=== PATIENT | female | born 1980 | race Caucasian/White ===

== ENCOUNTER 2019-09-23 04:14 | Emergency (ER) | payer BC ==
[2019-09-23] MEDS ORDERED: ACETAMINOPHEN 500 MG TAB ONE (04:46)
[2019-09-23 04:52] LABS: Barbiturates NEGATIVE (NEGATIVE); Benzodiazepines NEGATIVE (NEGATIVE); Cocaine NEGATIVE (NEGATIVE); METHAMPHETAM NEGATIVE (NEGATIVE); Methadone NEGATIVE (NEGATIVE); Opiates NEGATIVE (NEGATIVE); Phencyclidine NEGATIVE (NEGATIVE); THC Cannibis NEGATIVE (NEGATIVE)
[2019-09-23 05:00] LABS: Urine Blood TRACE (NEG); Urine Glucose NEGATIVE (NEG); Urine Protein 2+ (NEG); Urine Specific Gravity >1.030 (1.005-1.030)
--- NOTE | 2019-09-23 05:25 | EDPHYS ---
Physician Documentation [facility] Name: Ashley Wilkins Age: 38 yrs Sex: Female : 1980 Arrival Date: 09/23/2019 Time: 04:16 Bed 7 Private MD: ED Physician John Ren HPI: 09/22 04:26 This 38 yrs old Female presents to ER via EMS with complaints of Seizure. pkl 04:27 This 38 yrs old Female presents to ER via EMS with complaints of Seizure. pkl 04:27 The patient presents after having a single isolated seizure, that lasted 1 minute(s). pkl Character of seizure(s): Loss of consciousness: the patient experienced loss of consciousness, brief, Motor activity: generalized. Seizure onset: just prior to arrival. Patient taking Keppra for her seizure. Said she has been consistent with her medications. Last seizure 3 years ago. 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 - Social history:: Smoking status: Patient denies any tobacco usage or history of. ROS: 04:27 Eyes: Negative for injury, pain, redness, and discharge, ENT: Negative for injury, pkl pain, and discharge, Neck: Negative for injury, pain, and swelling, Cardiovascular: Negative for chest pain, palpitations, and edema, Respiratory: Negative for shortness of breath, cough, wheezing, and pleuritic chest pain, Abdomen/GI: Negative for abdominal pain, nausea, vomiting, diarrhea, and constipation, Back: Negative for injury and pain, : Negative for injury, bleeding, discharge, and swelling, MS/Extremity: Negative for injury and deformity, Skin: Negative for injury, rash, and discoloration. 04:27 Neuro: Positive for headache, seizure activity. Exam: 04:27 Head/Face: Normocephalic, atraumatic. Eyes: Pupils equal round and reactive to light, pkl extra-ocular motions intact. Lids and lashes normal. Conjunctiva and sclera are non-icteric and not injected. Cornea within normal limits. Periorbital areas with no swelling, redness, or edema. ENT: Nares patent. No nasal discharge, no septal abnormalities noted. Tympanic membranes are normal and external auditory canals are clear. Oropharynx with no redness, swelling, or masses, exudates, or evidence of obstruction, uvula midline. Mucous membranes moist. Neck: Trachea midline, no thyromegaly or masses palpated, and no cervical lymphadenopathy. Supple, full range of motion without nuchal rigidity, or vertebral point tenderness. No Meningismus. Chest/axilla: Normal chest wall appearance and motion. Nontender with no deformity. No lesions are appreciated. Cardiovascular: Regular rate and rhythm with a normal S1 and S2. No gallops, murmurs, or rubs. Normal PMI, no JVD. No pulse deficits. Respiratory: Lungs have equal breath sounds bilaterally, clear to auscultation and percussion. No rales, rhonchi or wheezes noted. No increased work of breathing, no retractions or nasal flaring. Abdomen/GI: Soft, non-tender, with normal bowel sounds. No distension or tympany. No guarding or rebound. No evidence of tenderness throughout. Back: No spinal tenderness. No costovertebral tenderness. Full range of motion. Skin: Warm, dry with normal turgor. Normal color with no rashes, no lesions, and no evidence of cellulitis. MS/ Extremity: Pulses equal, no cyanosis. Neurovascular intact. Full, normal range of motion. Neuro: Awake and alert, GCS 15, oriented to person, place, time, and situation. Cranial nerves II-XII grossly intact. Motor strength 5/5 in all extremities. Sensory grossly intact. Cerebellar exam normal. Normal gait. Vital Signs: 04:16 BP 122 / 71; Pulse 80; Resp 18; Temp 98.6(O); Pulse Ox 97% on R/A; Weight 133.81 kg lp1 (R); Height 5 ft. 9 in. (175.26 cm); Pain 0/10; 04:16 Body Mass Index 43.56 (133.81 kg, 175.26 cm) lp1 John Coma Score: 04:19 Eye Response: spontaneous(4). Verbal Response: oriented(5). Motor Response: obeys lp1 commands(6). Total: 15. MDM: 04:17 Patient medically screened. pkl 05:19 Data reviewed: vital signs, nurses notes, lab test result(s), radiologic studies, CT pkl scan. ED course: Patient feeling better. Discussed lab. and CT Scan result with patient and . Advised to continue her Keppra and follow up with Dr. Winchester ( Neurologist ) next week. Return if necessary. patient and understood instruction. 09/22 04:26 Order name: UDS; Complete Time: 05:00 pkl 09/22 04:26 Order name: UDS ea 09/22 04:26 Order name: CT Head Brain wo Cont pkl 09/22 04:49 Order name: Urine Dipstick--Ancillary (enter results); Complete Time: 05:00 mw2 09/22 04:49 Order name: Urine --Ancillary (enter results); Complete Time: 05:00 mw2 09/22 04:26 Order name: Urine Test (obtain specimen); Complete Time: 04:36 ea Administered Medications: 04:41 Drug: Tylenol 1000 mg Route: PO; ea 05:43 Follow up: Response: No adverse reaction; Pain is unchanged, physician notified sg Disposition: 09/23/19 05:24 Discharged to Home. Impression: Seizure disorder. - Condition is Stable. - Medication Reconciliation Form, Thank You Letter, Antibiotic Education, Prescription Opioid Use form. - Follow up: Shawn Winchester MD; When: 2 - 3 days; Reason: Re-evaluation by your physician. - Problem is new. - Symptoms have improved. Signatures: Dispatcher [employer] EDMS John Ren MD MD pkl Kassandra Che RN RN lp1 Ayaka Butler RN RN ea Wei Kerr RN sg Corrections: (The following items were deleted from the chart) 05:52 05:24 09/23/2019 05:24 Discharged to Home. Impression: Seizure disorder. Condition is ea Stable. Forms are Medication Reconciliation Form, Thank You Letter, Antibiotic Education, Prescription Opioid Use. Follow up: Shawn Winchester; When: 2 - 3 days; Reason: Re-evaluation by your physician. Problem is new. Symptoms have improved. pkl
--- NOTE | 2019-09-23 05:25 | ER ---
Nurse's Notes [facility] Name: Ashley Wilkins Age: 38 yrs Sex: Female : 1980 Arrival Date: 09/23/2019 Time: 04:16 Bed 7 Private MD: Diagnosis: Seizure disorder Presentation: 09/22 04:16 Chief complaint: EMS states: Called by patient's for witnessed seizure lasting lp1 about 1 minute; Per EMS, patient post ictal on arrival; Hx of epilepsy, last seizure about 3 years ago. Coronavirus screen: Proceed with normal triage. Ebola Screen: No symptoms or risks identified at this time. Initial Sepsis Screen: Does the patient meet any 2 criteria? No. Patient's initial sepsis screen is negative. Does the patient have a suspected source of infection? No. Patient's initial sepsis screen is negative. Risk Assessment: Do you want to hurt yourself or someone else? Patient reports no desire to harm self or others. Onset of symptoms was September 23, 2019 at 03:45. 04:16 Method Of Arrival: EMS: [facility] lp1 04:16 Acuity: JANIE 3 lp1 Triage Assessment: 04:32 General: Appears in no apparent distress. Behavior is calm, cooperative, appropriate ea for age. Pain: Denies pain. Neuro: Level of Consciousness is awake, alert, obeys commands, Oriented to person, place, time. 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 - Social history:: Smoking status: Patient denies any tobacco usage or history of. Screenin:20 Abuse screen: Denies threats or abuse. Denies injuries from another. Nutritional lp1 screening: No deficits noted. Tuberculosis screening: No symptoms or risk factors identified. 04:35 Fall Risk Secondary diagnosis (15 points) seizures. ea Assessment: 04:34 General: Appears in no apparent distress. Behavior is appropriate for age, drowsy. ea Neuro: Level of Consciousness is awake, alert, obeys commands, Oriented to person, place, time. Respiratory: Airway is patent Respiratory effort is even, unlabored, Respiratory pattern is regular, symmetrical. Derm: Skin is pink, warm \T\ dry. Musculoskeletal: Circulation, motion, and sensation intact. 04:39 Reassessment: Patient appears in no apparent distress at this time. a urine sample has sg been sent to lab for UDS. 05:16 Reassessment: speaking with pt family at this time, reports the pt to continue sg taking seizure medication and to please schedule a follow up appointment with for possible changes to seizure medications, pt spouse stated understanding, pt to be discharged to home within the hour. 05:54 Reassessment: Patient appears in no apparent distress at this time. pt complaining of sg headache, requesting Ibuprofen. notified of pt request for more pain medication, no new orders received at this time, pt instructed that her is out front for transport back to home, pt is discharged as ordered. Vital Signs: 04:16 BP 122 / 71; Pulse 80; Resp 18; Temp 98.6(O); Pulse Ox 97% on R/A; Weight 133.81 kg lp1 (R); Height 5 ft. 9 in. (175.26 cm); Pain 0/10; 04:16 Body Mass Index 43.56 (133.81 kg, 175.26 cm) lp1 [place] Coma Score: 04:19 Eye Response: spontaneous(4). Verbal Response: oriented(5). Motor Response: obeys lp1 commands(6). Total: 15. ED Course: 04:16 Patient arrived in ED. lp1 04:16 John Ren MD is Attending Physician. pkl 04:18 Triage completed. lp1 04:18 Arm band placed on. lp1 04:29 Ayaka Butler, BRO is Primary Nurse. ea 04:30 Patient has correct armband on for positive identification. Bed in low position. Call ea light in reach. 04:30 Seizure precautions initiated. ea 04:35 Urine collected: clean catch specimen, cloudy. sg 04:48 CT Head Brain wo Cont In Process Unspecified. EDMS 05:23 Shawn Winchester MD is Referral Physician. pkl 05:50 No provider procedures requiring assistance completed. IV discontinued, intact, ea bleeding controlled, No redness/swelling at site. Pressure dressing applied. Administered Medications: 04:41 Drug: Tylenol 1000 mg Route: PO; ea 05:43 Follow up: Response: No adverse reaction; Pain is unchanged, physician notified sg Outcome: 05:24 Discharge ordered by . pkfranki 05:50 Discharged to home via wheelchair, with family. ea 05:50 Condition: stable 05:50 Discharge instructions given to patient, Instructed on discharge instructions, follow up and referral plans. Demonstrated understanding of instructions, follow-up care. 05:50 Discharged to home via wheelchair, with family. sg 05:50 Condition: good 05:50 Instructed on 05:52 Patient left the ED. ea Signatures: Dispatcher [employer] EDWei Rush RN RN John Whiteside MD MD pkl Pena, Laura RN RN lp1 Ayaka Butler RN RN ea
[2019-09-23 05:59] VITALS: BP 122/71; TEMP 98.6; O2SAT 97
--- NOTE | 2019-09-23 17:18 | RAD REPORT ---
EXAM DESCRIPTION: CT - Head Brain Wo Cont - 09/23/2019 6:49 am CLINICAL HISTORY: The patient is 38 years old and is Female; SEIZURE TECHNIQUE: Axial computed tomography images of the head/brain without intravenous contrast. Sagitt al and coronal reformatted images were created and reviewed. This CT exam was performed using one o r more of the following dose reduction techniques: automated exposure control, adjustment of the mA and/or kV according to patient size, and/or use of iterative reconstruction technique. COMPARISON: No relevant prior studies available. FINDINGS: Brain: Unremarkable. No hemorrhage. No significant white matter disease. No edema. Ventricles: Unremarkable. No ventriculomegaly. Bones/joints: Unremarkable. No acute fracture. Soft tissues: Unremarkable. Sinuses: Unremarkable as visualized. No acute sinusitis. Mastoid air cells: No significant mastoid fluid. IMPRESSION: No acute intracranial findings. No hemorrhage. Electronically signed by: Christie Stoddard MD 09/23/2019 4:57 AM CDT Due to temporary technical issues with the PACS/Fluency reporting system, reports are being signed by the in house radiologist as a courtesy to ensure prompt reporting. The interpreting radiologist is f ully responsible for the content of the report.
== END 2019-09-23 05:52 | disposition home or self-care (01) ==
LOC: ER 04:14
DX: G40.909 Epilepsy, unspecified, not intractable, without status epilepticus (principal)
CPT/HCPCS: 70450; 80307; 81003; 81025; 99284

== ENCOUNTER 2021-01-24 19:24 | Emergency (ER) | payer BC ==
--- OUTSIDE RECORDS SUMMARY | 2021-01-24 19:27 | XMS REPORT | Continuity of Care Document ---
:1980 Author Organization [facility] t Address [address] [place] [address] Care Team Providers Name Role Phone Emile MARTINS Derek Primary Care Physician ESTELLA Attending Clinician Unavailable Payers Payer Name Policy Type Policy Number Effective Date Expiration Date S ource Problems This patient has no known problems. Allergies, Adverse Reactions, Alerts Allergy Allergy Status Severity Reaction(s) Onset Inactive Treating Comm ents Source Name Type Date Date Clinician No Known DA Active U 2019-05 [facility] [place] Family History Family Member Diagnosis Comments Start Date Stop Date Source [facility] Social History Social Habit Start Date Stop Date Quantity Comments Source Tobacco use and 2019-10-24 2019-10-24 Never used [facility] 00:00:00 00:00:00 Hospital Alcohol intake 2019-10-24 2019-10-24 Ex-drinker [facility] 00:00:00 00:00:00 (finding) Hospital Sex Ass[birth year] At [birth year] [facility] [facility] 00:[facility]:00 Hospital Smoking Status Start Date Stop Date Source Never smoker [facility] Medications Ordered Filled Start Stop Current Ordering Indication Dosage Frequency Signature Comments Components Source Medication Medication Date Date Medication? Clinician (SIG) Name Name sertraline Yes 100mg QD Take 100 [facility] (Zoloft) 6-[address] 100 MG 16:00: mouth [facility]osp[facility] tablet 22 daily. l norethindro 2020-0 Yes 1{tbl} QD Take 1 [facility] ne-e.estrad 6-[address] ioL-iron 16:00: mouth [facility]osp[facility] (ESTROSTEP 22 daily. l FE) 1-20(5)/1-3 0(7) /1mg-35mcg (9) tablet levETIRAcet 2020-0 Yes 1000mg Q.5D Take 1 [facility] am (KEPPRA) 6-[address] 1000 MG 00:00: (1,000 mg Hospi ta tablet 00 total) by l mouth 2 (two) times a day. Procedures This patient has no known procedures. Plan of Care Planned Activity Planned Date Details Comments Source Future Scheduled Test COVID-19 VACCINE (1) [facility] [code = COVID-19 VACCINE (1)] Future Scheduled Test Hepatitis C screening [facility] (procedure) [code = 637438968] Future Scheduled Test Screening for [facility] malignant neoplasm of cervix (procedure) [code = 529336413] Future Scheduled Test INFLUENZA VACCINE [facility] [code = INFLUENZA VACCINE] Encounters Start End Encounter Admission Attending Care Care Encounter Source Date/Time Date/Time Type Type Clinicians Facility Department ID 2019-10-24 2019-10-24 Outpatient [facility] [id number] [place] 00:00:00 00:00:[address] Results Test Description Test Time Test Comments Results Result Comments Source PLACENTA THIRD TRIMESTER 2020-05-16 09:32:00 Test Item Value Reference Range Interpretation Comme nts PLACENTA RUN THIRD DATE: 05/16/20 [facility] PAGE 1 RUN TRIMESTER TIME: 1033 Specimen Inquiry RUN USER: INTERFACE (test code = PLACIII) PLACIDO ENT: MEIR SIMON LOC: PRECIOUS U #: [id number] AGE/SX: 39/F ROOM: [facility] RE05/13/20REG DR: Michael Quiroga MD : 82 BED : A DIS: STATUS: ADM IN TLOC: SPEC #: [id number] R PERSONAL CARE HOME ADMINISTRATOR: 05/14/20 STATUS: MAC REQ #: [id number] [place]: - SUBM DR: Michael Quiroga MD ENTERED: 05/14/20 SP TYPE: PL ACIII OTHR DR: ORDERED: LEVEL V SURGICA/3 CODES: [id number] - FALLOPIAN TUBE [id number] - PLACENTA, NOS PROCEDURES: LEVEL V SURGICA (Incomplete) TISSUES: PLACENTA, NOS - PLACE NTA FALLOPIAN TUBE, NOS - BILATERAL FALLOPIAN TUBES CLINICAL HISTORY 39 year old, IUP @ 38.0 weeks, , section, advanced maternal age, history of seizures (wpd) FINAL DIAGNOSIS Right fallopian tube, ligation: - completely transected u nremarkable fallopian tube Left fallopian tube, ligation: - completely transected un remarkable fallopian tube Placenta, 38.0 weeks gestational age, section: - third trimester placenta, 450 gms (40th percentile) - delayed villous maturation - meconium macrophages within membranes - focal villous edema - velam entously inserted trivascular umbilical cord and membranes free of inflammatio n CPT code(s): 56932 x2, 23648 [facility]/wpd GROSS DESCRIPTION ANATOMIC SOUR CE OF TISSUE (per Requisition): 1. Matty fallopian tubes (received in 2 containers) 2. Placenta Each specimen is labeled with the patient's name and medical record numb er. CONTINUED ON NEXT PAGE RUN DATE: 05/16/20 [facility] PAGE 2 RUN TIME: 1033 Specimen Inquiry RUN USER: INTERFACE SPEC #: [id number] PATIENT: MEIR SIMON #[id number] (Continued) ------- GROSS DESCRIP TION (Continued) Specimen #1 is designated "right" and consists of a 2.0 x 0.6 cm t an-pink tubular tissue. No fimbriae are identified. Sectioning reveals a pinpoint lumen. A mortician supplies sales representative section is submitted in A1. Specimen #2 is designated "left" and consis ts of a 3.0 x 0.7 cm shields-pink tubular tissue. No fimbriae are identified. Sectioning reve als a pinpoint lumen. A mortician supplies sales representative section is submitted in B1. Specimen #3 was re ceived in a container, labeled with the patient's name, unit number and designated "place nta". The following attributes are observed: Cord insertion: Velamentou s Cord length: 65 cm Number of vessels: 3 Cord colo r: Shields-white Other cord findings: None surface fin dings: Blue-purple, wrinkled, glistening Vasculature: Unremark able blood vasculature Membranes rupture site: 5 cm to margin Membrane color: Shields-pink Other membrane findings: Semi-translucent The aleah ed placental weight: 450 gm Disk measurement: 18 x 16 x 3 cm in greatest dimension Accessory lobes: None Maternal surface: Lobulated and focally disrup michael Parenchyma: Red-brown and spongy Parenchyma lesions: None Cassettes: C1 through C4 ar/tk 05/14/20 ---- Signed Fe Osorio MD 05/16/20 0932 END OF REPORT CBC W/AUTO [id number] 08:07:00 Test Item Value Reference Range Interpretation Comments WHITE BLOOD CELL (test 11.0 K/mm3 6.6-12.1 Resul ts verified by code = WBC) repeat analysis RED BLOOD CELL (test 2.66 M/mm3 3.45-5.01 L code = RBC) HEMOGLOBIN (test code = 7.3 g/dL 10.7-13.9 L Resu lts verified by HGB) repeat analysis HEMATOCRIT (test code = 25.0 % 32.1-42.1 L Resu lts verified by HCT) repeat analysis MEAN CELL VOLUME (test 94 fL 84.1-94.8 N code = MCV) MEAN CELL HGB (test code 27.4 pg 27-35 N = MCH) MEAN CELL HGB 29.2 gm/dL 32.2-34.1 L CONCETRATION (test code = MCHC) RED CELL DISTRIBUTION 13.4 % 12.4-16.5 N WIDTH (test code = RDW) PLATELET COUNT (test 198 K/mm3 133-385 N code = PLT) MEAN PLATELET VOLUME 10.1 fl 9.1-12.7 N (test code = MPV) NEUTROPHIL % (test code 66.3 % 56.5-79.4 N = NT%) LYMPHOCYTE % (test code 23.6 % 14.3-34.3 N = LY%) MONOCYTE % (test code = 8.1 % 5.1-10.4 N MO%) EOSINOPHIL % (test code 0.9 % 0.1-3.0 N = EO%) BASOPHIL % (test code = 0.3 % 0.1-1.0 N BA%) NEUTROPHIL # (test code 7.3 K/mm3 = NT#) LYMPHOCYTE # (test code 2.6 K/mm3 = LY#) MONOCYTE # (test code = 0.9 K/mm3 MO#) EOSINOPHIL # (test code 0.10 K/mm3 = EO#) BASOPHIL # (test code = 0.0 K/mm3 BA#) RBC MORPHOLOGY REQUIRED NORMAL NORMAL (test code = RBCM) PLATELET MORPHOLOGY NORMAL NORMAL REQUIRED (test code = PLTMR) COMPREHENSIVE METABOLIC [id number] 11:48:00 Test Item Value Reference Range Interpretation Comments SODIUM (test code = NA) 140 mEq/L 135-145 N POTASSIUM (test code = K) 4.4 mEq/L 3.5-5.0 N CHLORIDE (test code = CL) 107 mEq/L 100-115 N CARBON DIOXIDE (test code = CO2) 23 mEq/L 22-31 N ANION GAP (test code = GAP) 14.00 10-20 N GLUCOSE (test code = GLU) 107 mg/dL 65-110 N BLOOD UREA NITROGEN (test code = 8 mg/dL 7-18 N BUN) GLOMERULAR FILTRATION RATE (test 112 ml/min >60 N code = GFR) CREATININE (test code = CREAT) 0.6 mg/dL 0.5-1.0 N TOTAL PROTEIN (test code = PROT) 5.6 gm/dL 6.3-8.2 L ALBUMIN (test code = ALB) 2.6 gm/dL 3.4-4.8 L CALCIUM (test code = CA) 8.5 mg/dL 8.4-10.2 N BILIRUBIN TOTAL (test code = 0.2 mg/dL 0.2-1.0 N BILT) SGOT/AST (test code = AST) 16 units/L 15-37 N SGPT/ALT (test code = ALT) 14 units/L 12-78 N ALKALINE PHOSPHATASE TOTAL (test 122 units/L 46-116 H code = ALKP) SAMPLE TOO HEMOLYZED, NOTIFIED LD. RECOLLECTION NEEDED.AG HEPATITIS B SURFACE 2020-05-13 08:13:00 Test Item Value Reference Range Interpretation Comments AG HEPATITIS B SURFACE (test code NONREACTIVE NONREACTIVE = HBSAG) IS CONSENT FORM SIGNED FOR HIV TESTING? NAB HEPATITIS C [id number] 08:13:00 Test Item Value Reference Range Interpretation Comments AB HEPATITIS C (test code = NONREACTIVE NONREACTIVE HCVAB) SIGNAL TO CUTOFF (test code = 0.06 <0.80 N CUTOFF) IS CONSENT FORM SIGNED FOR HIV TESTING? NAB [id number] 08:13:00 Test Item Value Reference Range Interpretation Comments AB TREPONEMA (test code = TREPAB) NONREACTIVE NONREACTIVE IS CONSENT FORM SIGNED FOR HIV TESTING? NAB HIV 1 08:13:00 Test Item Value Reference Range Interpretation Comments AB HIV 1 2 (test NONREACTIVE NONREACTIVE Done by [facility] code = [id number]) 4th Gen HIV Ag/Ab Combo Screen IS CONSENT FORM SIGNED FOR HIV TESTING? NAG HEPATITIS B [id number] 07:41:00 Test Item Value Reference Range Interpretation Comments AG HEPATITIS B SURFACE (test code NONREACTIVE NONREACTIVE = HBSAG) IS CONSENT FORM SIGNED FOR HIV TESTING? NAB HEPATITIS C [id number] 07:41:00 Test Item Value Reference Range Interpretation Comments AB HEPATITIS C (test code = HCVAB) NONREACTIVE SIGNAL TO CUTOFF (test code = CUTOFF) <0.80 IS CONSENT FORM SIGNED FOR HIV TESTING? NAB [id number] 07:41:00 Test Item Value Reference Range Interpretation Comments AB TREPONEMA (test code = TREPAB) NONREACTIVE NONREACTIVE IS CONSENT FORM SIGNED FOR HIV TESTING? NAB HIV 1 07:41:00 Test Item Value Reference Range Interpretation Comments AB HIV 1 2 (test code = [id number]) NONREACTIVE IS CONSENT FORM SIGNED FOR HIV TESTING? NCBC W/AUTO [id number] 07:05:00 Test Item Value Reference Range Interpretation Comments WHITE BLOOD CELL (test code = WBC) 7.0 K/mm3 6.6-12.1 N RED BLOOD CELL (test code = RBC) 3.70 M/mm3 3.45-5.01 N HEMOGLOBIN (test code = HGB) 10.0 g/dL 10.7-13.9 L HEMATOCRIT (test code = HCT) 32.2 % 32.1-42.1 N MEAN CELL VOLUME (test code = MCV) 87 fL 84.1-94.8 N MEAN CELL HGB (test code = MCH) 27.0 pg 27-35 N MEAN CELL HGB CONCETRATION (test 31.1 gm/dL 32.2-34.1 L code = MCHC) RED CELL DISTRIBUTION WIDTH (test 13.1 % 12.4-16.5 N code = RDW) PLATELET COUNT (test code = PLT) 208 K/mm3 133-385 N MEAN PLATELET VOLUME (test code = 9.8 fl 9.1-12.7 N MPV) NEUTROPHIL % (test code = NT%) 61.8 % 56.5-79.4 N LYMPHOCYTE % (test code = LY%) 26.5 % 14.3-34.3 N MONOCYTE % (test code = MO%) 9.8 % 5.1-10.4 N EOSINOPHIL % (test code = EO%) 0.7 % 0.1-3.0 N BASOPHIL % (test code = BA%) 0.3 % 0.1-1.0 N NEUTROPHIL # (test code = NT#) 4.3 K/mm3 LYMPHOCYTE # (test code = LY#) 1.9 K/mm3 MONOCYTE # (test code = MO#) 0.7 K/mm3 EOSINOPHIL # (test code = EO#) 0.05 K/mm3 BASOPHIL # (test code = BA#) 0.0 K/mm3 RBC MORPHOLOGY REQUIRED (test code NORMAL NORMAL = RBCM) PLATELET MORPHOLOGY REQUIRED (test NORMAL NORMAL code = PLTMR) AG HEPATITIS B [id number] 13:00:00 Test Item Value Reference Range Interpretation Comments AG HEPATITIS B SURFACE (test code NONREACTIVE NONREACTIVE = HBSAG) IS CONSENT FORM SIGNED FOR HIV TESTING? YAB HEPATITIS C [id number] 13:00:00 Test Item Value Reference Range Interpretation Comments AB HEPATITIS C (test code = NONREACTIVE NONREACTIVE HCVAB) SIGNAL TO CUTOFF (test code = 0.07 <0.80 N CUTOFF) IS CONSENT FORM SIGNED FOR HIV TESTING? YAB [id number] 13:00:00 Test Item Value Reference Range Interpretation Comments AB TREPONEMA (test code = TREPAB) NONREACTIVE NONREACTIVE IS CONSENT FORM SIGNED FOR HIV TESTING? YAB HIV 1 13:00:00 Test Item Value Reference Range Interpretation Comments AB HIV 1 2 (test NONREACTIVE NONREACTIVE Done by Lawrence Duran code = [id number]) 4th Gen HIV Ag/Ab Combo Screen IS CONSENT FORM SIGNED FOR HIV TESTING? YCOVID 19 Asymptomatic IH [id number] 12:48:00 Test Item Value Reference Range Interpretation Comments COVID 19 NEGATIVE NEGATIVE This test has b een Asymptomatic IH AG authorize d only for the (test code = detection ofpro teins from COVNONPUIAG) SARS-CoV-2, not for any other viruses orpathogens. N egative results should be treated as presumptive andconfirmed wi th a molecular assay , if necessary for patientmanageme nt. Negative result s do not rule out COVID- 19 andshould not b e used as the sole basis for treatment orpat ient management deci sions, including infec tion controldecision s. Negative result s should be considered i n thecontext of a patient's recent exposure s, history and thepresence of clinical signs and symptoms consis tent withCOVID-19. T his test has not been FD A cleared or approved; th e test hasbeen authori zed by FDA under an Emerge ncy Use Authorization(E UA) for use by al field certified under the CLIA thatmeet the re quirements to perform mode rate, high or waivedcomple xity tests. This ray t is authorized for use at thePoint of Car e (POC), i.e., in patien t care settingsoperati ng under a CLIA Certificat e of Waiver, Certifi garima ofCompliance, o r Certificate of Accreditation. This test is only authori zed for the duration of thedeclaration that circumstances e xist justifying theauthorizatio n of emergency use o f in vitro diagnostic test sfor detection and/o r diagnosis of CO VID-19 under Kdogqnv22 4(b)(1) of the Act, 21 U.S .C. 360bbb-3(b)(1), unless theauthorizatio n is terminated or r evoked sooner. AG HEPATITIS B [id number] 12:31:00 Test Item Value Reference Range Interpretation Comments AG HEPATITIS B SURFACE (test code NONREACTIVE NONREACTIVE = HBSAG) IS CONSENT FORM SIGNED FOR HIV TESTING? YAB HEPATITIS C [id number] 12:31:00 Test Item Value Reference Range Interpretation Comments AB HEPATITIS C (test code = HCVAB) NONREACTIVE SIGNAL TO CUTOFF (test code = CUTOFF) <0.80 IS CONSENT FORM SIGNED FOR HIV TESTING? YAB [id number] 12:31:00 Test Item Value Reference Range Interpretation Comments AB TREPONEMA (test code = TREPAB) NONREACTIVE NONREACTIVE IS CONSENT FORM SIGNED FOR HIV TESTING? YAB HIV 1 12:31:00 Test Item Value Reference Range Interpretation Comments AB HIV 1 2 (test code = [id number]) NONREACTIVE IS CONSENT FORM SIGNED FOR HIV TESTING? YCBC W/AUTO [id number] 12:00:00 Test Item Value Reference Range Interpretation Comments WHITE BLOOD CELL (test code = WBC) 7.0 K/mm3 6.6-12.1 N RED BLOOD CELL (test code = RBC) 4.07 M/mm3 3.45-5.01 N HEMOGLOBIN (test code = HGB) 11.1 g/dL 10.7-13.9 N HEMATOCRIT (test code = HCT) 36.2 % 32.1-42.1 N MEAN CELL VOLUME (test code = MCV) 89 fL 84.1-94.8 N MEAN CELL HGB (test code = MCH) 27.3 pg 27-35 N MEAN CELL HGB CONCETRATION (test 30.7 gm/dL 32.2-34.1 L code = MCHC) RED CELL DISTRIBUTION WIDTH (test 13.2 % 12.4-16.5 N code = RDW) PLATELET COUNT (test code = PLT) 225 K/mm3 133-385 N MEAN PLATELET VOLUME (test code = 9.8 fl 9.1-12.7 N MPV) NEUTROPHIL % (test code = NT%) 68.0 % 56.5-79.4 N LYMPHOCYTE % (test code = LY%) 21.5 % 14.3-34.3 N MONOCYTE % (test code = MO%) 8.9 % 5.1-10.4 N EOSINOPHIL % (test code = EO%) 0.6 % 0.1-3.0 N BASOPHIL % (test code = BA%) 0.3 % 0.1-1.0 N NEUTROPHIL # (test code = NT#) 4.8 K/mm3 LYMPHOCYTE # (test code = LY#) 1.5 K/mm3 MONOCYTE # (test code = MO#) 0.6 K/mm3 EOSINOPHIL # (test code = EO#) 0.04 K/mm3 BASOPHIL # (test code = BA#) 0.0 K/mm3 RBC MORPHOLOGY REQUIRED (test code NORMAL NORMAL = RBCM) PLATELET MORPHOLOGY REQUIRED (test NORMAL NORMAL code = PLTMR)
[2021-01-24 20:43] LABS: Absolute Lymphocytes (CBC) 1.3 K/uL (0.7-4.9); Basophils % 0.5 % (0-1.3); Hematocrit 41.2 % (36.0-45.0); Lymphocytes % 20.7 % (15.3-44.8); RBC Red Blood Cell Count 4.63 M/uL (3.86-4.86)
[2021-01-24 20:47] LABS: Protime INR 0.98
[2021-01-24 20:57] LABS: ALT/SGPT 27 U/L (12-78); AST/SGOT 15 U/L (15-37); Albumin 4.4 g/dL (3.4-5.0); Alkaline Phosphatase 57 U/L (45-117); BUN Blood Urea Nitrogen 14 mg/dL (7-18); Bicarbonate 24 mmol/L (21-32); Bilirubin Direct < 0.1 mg/dL (0-0.2); Bilirubin Total 0.3 mg/dL (0.2-1.0); CKMB Creatine Kinase MB < 1.0 ng/mL (1.0-3.6); Creatine Phosphokinase 83 U/L (26-192); Glucose Level 198 mg/dL (74-106); Lipase 103 U/L (73-393); Magnesium 2.3 mg/dL (1.8-2.4); Potassium 3.9 mmol/L (3.5-5.1); Protein, Total 7.9 g/dL (6.4-8.2); Sodium Level 138 mmol/L (136-145)
[2021-01-24] MEDS ORDERED: LEVETIRACETAM 500 MG/5 ML VIAL IV ONE (21:58)
[2021-01-24 22:24] LABS: Barbiturates NEGATIVE (NEGATIVE); Benzodiazepines NEGATIVE (NEGATIVE); Cocaine NEGATIVE (NEGATIVE); METHAMPHETAM NEGATIVE (NEGATIVE); Methadone NEGATIVE (NEGATIVE); Opiates NEGATIVE (NEGATIVE); Phencyclidine NEGATIVE (NEGATIVE); THC Cannibis NEGATIVE (NEGATIVE)
--- NOTE | 2021-01-24 22:43 | ER ---
Nurse's Notes [facility] Name: Ashley Wilkins Age: 40 yrs Sex: Female : 1980 Arrival Date: 01/24/2021 Time: 19:31 Bed 15 Private MD: Diagnosis: Epileptic seizures related to external causes Presentation: 01/24 19:48 Chief complaint: Spouse and/or significant other states: had 4 seizures today in the iw span of 2 hours, has hx of seizures, is in keppra and another new medication, last seizure was 2 weeks ago, but normally doesn't have multiple in a row, states pt still doesn't seem back to her normal self , sees Dr. Winchester. Coronavirus screen: At this time, the client does not indicate any symptoms associated with coronavirus-19. Ebola Screen: Patient negative for fever greater than or equal to 101.5 degrees Fahrenheit, and additional compatible Ebola Virus Disease symptoms Patient denies exposure to infectious person. Patient denies travel to an Ebola-affected area in the 21 days before illness onset. No symptoms or risks identified at this time. Initial Sepsis Screen: Does the patient meet any 2 criteria? No. Patient's initial sepsis screen is negative. Does the patient have a suspected source of infection? No. Patient's initial sepsis screen is negative. Risk Assessment: Do you want to hurt yourself or someone else? Patient reports no desire to harm self or others. Onset of symptoms was January 24, 2021. 19:48 Method Of Arrival: Wheelchair iw 19:48 Acuity: JANIE 3 iw Triage Assessment: 21:30 General: Behavior is calm, cooperative, appropriate for age. Pain: Denies pain. Neuro: lh3 No deficits noted. 23:28 General: Appears. lh3 Historical: - Allergies: 19:50 No Known Allergies; iw - PMHx: 19:50 Seizure; iw Screenin:27 Abuse screen: Denies threats or abuse. Nutritional screening: No deficits noted. lh3 Tuberculosis screening: No symptoms or risk factors identified. Fall Risk None identified. Vital Signs: 19:48 BP 125 / 90; Pulse 99; Resp 16; Temp 98.4; Pulse Ox 100% on R/A; iw Hillman Coma Score: 21:30 Eye Response: spontaneous(4). Verbal Response: oriented(5). Motor Response: obeys 3 commands(6). Total: 15. ED Course: 19:31 Patient arrived in ED. cf2 19:50 Triage completed. iw 19:51 Arm band placed on. iw 19:55 Goyo Ureña MD is Attending Physician. tw4 21:22 Velma Cortez RN is Primary Nurse. 3 21:30 No provider procedures requiring assistance completed. Inserted saline lock: 22 gauge lh3 in right hand, using aseptic technique. 22:00 IV discontinued, bleeding controlled. 3 22:42 Shawn Winchester MD is Referral Physician. tw4 23:27 Patient has correct armband on for positive identification. Bed in low position. Call 3 light in reach. Side rails up X 1. 23:30 Basic Metabolic Panel Sent. 3 Administered Medications: 22:18 Drug: Keppra (levETIRAcetam) 1000 mg Route: IV; Rate: calculated rate; Site: right hand;3 22:18 Follow up: Response: No adverse reaction; IV Status: Completed infusion 3 Outcome: 21:30 Discharged to home ambulatory. 3 21:30 Condition: good 21:30 Discharge instructions given to patient, Instructed on discharge instructions, Demonstrated understanding of instructions, follow-up care, medications, Prescriptions given X 1. 22:42 Discharge ordered by . tw4 23:27 Patient left the ED. 3 Signatures: Caroline Ramirez RN RN Goyo Ureña MD MD 4 Radha Kinsey cf2 Velma Cortez RN RN 3 Corrections: (The following items were deleted from the chart) 19:50 19:48 Chief complaint: Spouse and/or significant other states: had 4 seizures today in iw the span of 2 hours, has hx of seizures, is in keppra and another medication, last seizure was 2 weeks ago, but normally doesn't have multiple in a row, states pt still doesn't seem back to her normal self iw 19:51 19:48 Chief complaint: Spouse and/or significant other states: had 4 seizures today in iw the span of 2 hours, has hx of seizures, is in keppra and another new medication, last seizure was 2 weeks ago, but normally doesn't have multiple in a row, states pt still doesn't seem back to her normal self iw 23:30 23:27 Inserted lh3 lh3
--- NOTE | 2021-01-24 22:43 | EDPHYS ---
Physician Documentation [facility] Name: Ashley Wilkins Age: 40 yrs Sex: Female : 1980 Arrival Date: 01/24/2021 Time: 19:31 Bed 15 Private MD: ED Physician Goyo Ureña HPI: 01/25 04:08 This 40 yrs old Female presents to ER via Wheelchair with complaints of tw4 Seizure. 04:08 Character of seizure(s): Loss of consciousness:. Seizure onset: this morning. tw4 Associated injury: The patient did not suffer any apparent associated injury. 04:08 The patient has experienced similar episodes in the past. tw4 Historical: - Allergies: 01/24 19:50 No Known Allergies; iw - PMHx: 19:50 Seizure; iw ROS: 01/25 04:08 Constitutional: Negative for fever, chills, and weight loss, Eyes: Negative for injury, tw4 pain, redness, and discharge, Cardiovascular: Negative for chest pain, palpitations, and edema, Respiratory: Negative for shortness of breath, cough, wheezing, and pleuritic chest pain, Abdomen/GI: Negative for abdominal pain, nausea, vomiting, diarrhea, and constipation, Back: Negative for injury and pain, MS/Extremity: Negative for injury and deformity, Skin: Negative for injury, rash, and discoloration. Neuro: Positive for seizure activity. Exam: 04:08 Constitutional: This is a well developed, well nourished patient who is awake, alert, tw4 and in no acute distress. Head/Face: Normocephalic, atraumatic. Chest/axilla: Normal chest wall appearance and motion. Nontender with no deformity. No lesions are appreciated. Cardiovascular: Regular rate and rhythm with a normal S1 and S2. No gallops, murmurs, or rubs. Normal PMI, no JVD. No pulse deficits. Respiratory: Lungs have equal breath sounds bilaterally, clear to auscultation and percussion. No rales, rhonchi or wheezes noted. No increased work of breathing, no retractions or nasal flaring. Abdomen/GI: Soft, non-tender, with normal bowel sounds. No distension or tympany. No guarding or rebound. No evidence of tenderness throughout. Back: No spinal tenderness. No costovertebral tenderness. Full range of motion. Skin: Warm, dry with normal turgor. Normal color with no rashes, no lesions, and no evidence of cellulitis. MS/ Extremity: Pulses equal, no cyanosis. Neurovascular intact. Full, normal range of motion. Neuro: Awake and alert, GCS 15, oriented to person, place, time, and situation. Cranial nerves II-XII grossly intact. Motor strength 5/5 in all extremities. Sensory grossly intact. Cerebellar exam normal. Normal gait. Vital Signs: 01/24 19:48 BP 125 / 90; Pulse 99; Resp 16; Temp 98.4; Pulse Ox 100% on R/A; iw [place] Coma Score: 21:30 Eye Response: spontaneous(4). Verbal Response: oriented(5). Motor Response: obeys lh3 commands(6). Total: 15. MDM: 22:42 Patient medically screened. 01/24 19:56 Order name: Basic Metabolic Panel 01/24 19:56 Order name: CBC with Diff; Complete Time: 22:31 01/24 22:31 Interpretation: Normal except: ROSA% 73.8; MPV 7.0. 01/24 19:56 Order name: CPK; Complete Time: 22:31 01/24 22:34 Interpretation: Within normal limits: CPK 83. 01/24 19:56 Order name: Ckmb; Complete Time: 22:31 01/24 22:31 Interpretation: Within normal limits: CKMB < 1.0. 01/24 19:56 Order name: Hepatic Function; Complete Time: 22:31 01/24 22:34 Interpretation: Within normal limits. 01/24 19:56 Order name: Lipase; Complete Time: 22:31 01/24 22:34 Interpretation: Within normal limits: LIP 103. 01/24 19:56 Order name: Magnesium; Complete Time: 22:31 01/24 22:34 Interpretation: Within normal limits: MG 2.3. 01/24 19:56 Order name: Protime (+inr); Complete Time: 22:31 01/24 19:56 Order name: Ptt, Activated; Complete Time: 22:31 01/24 22:32 Interpretation: Within normal limits: PTT 24.0. /10 19:56 Order name: UDS; Complete Time: 22:31 tw 01/24 19:56 Order name: EKG; Complete Time: 19:57 [facility] 01/24 19:56 Order name: Cardiac monitoring [facility] 01/24 19:56 Order name: Basic Metabolic Panel; Complete Time: 22:27 [facility] 01/24 22:38 Interpretation: Normal except: GFR 60. [facility] 01/24 19:56 Order name: EKG - Nurse/Tech tw 01/24 19:56 Order name: IV Saline Lock 01/24 19:56 Order name: Labs collected and sent 01/24 19:56 Order name: NPO 01/24 19:56 Order name: O2 Per Protocol [facility] 01/24 19:56 Order name: O2 Sat Monitoring 01/24 19:56 Order name: Urine Dipstick-Ancillary (obtain specimen) tw4 Administered Medications: 22:18 Drug: Keppra (levETIRAcetam) 1000 mg Route: IV; Rate: calculated rate; Site: [facility] 22:18 Follow up: Response: No adverse reaction; IV Status: Completed infusion 3 Disposition Summary: 01/24/21 22:42 Discharge Ordered Location: Home tw4 Problem: an ongoing problem tw4 Symptoms: have improved tw4 Condition: Stable tw4 Diagnosis - Epileptic seizures related to external causes tw4 Followup: tw4 - With: Private Physician - When: Upon discharge from the Emergency Department - Reason: Recheck today's complaints, Continuance of care, Re-evaluation by your physician Followup: tw4 - With: Shawn Winchester MD - When: Upon discharge from the Emergency Department - Reason: Recheck today's complaints, Continuance of care, Re-evaluation by your physician Discharge Instructions: - Discharge Summary Sheet tw4 - Seizure, Adult tw4 Forms: - Medication Reconciliation Form tw4 - Thank You Letter tw4 - Antibiotic Education tw4 - Prescription Opioid Use tw4 Prescriptions: - Keppra 500 mg Oral Tablet - take 1 tablet by ORAL route every 12 hours; 20 tablet; Refills: 0, Product tw4 Selection Permitted Signatures: Dispatcher [employer] REDDWI Caroline Ramirez RN RN Goyo Ureña MD MD [facility] Diego, Velma, RN RN [id number]
[2021-01-24 23:51] VITALS: BP 125/90; TEMP 98.4; O2SAT 100
== END 2021-01-24 23:27 | disposition home or self-care (01) ==
LOC: ER 19:24
DX: G40.509 Epileptic seizures related to external causes, not intractable, without status epilepticus (principal)
CPT/HCPCS: 93005; 85025; 80048; 36415; 83735; 82550; 85610; 80076; 85730; 82553; 83690; 80307; 96374; 99284; J1953